=== PATIENT | female | born 1950 | race Caucasian/White ===

== ENCOUNTER → 2023-05-16 14:55 | Outpatient (REF) | payer MEDICARE, OTHER, SELFPAY | LOC: DHCBC HW 14:55 | PROVIDERS: ATTENDING PHYSICIAN Internal Medicine Cardiovascular Disease; FAMILY PHYSICIAN Family Medicine | DX: I35.0 Nonrheumatic aortic (valve) stenosis (principal) | CPT/HCPCS: 93306 ==

== ENCOUNTER → 2023-06-04 08:32 | Outpatient (REF) | payer MEDICARE, OTHER, SELFPAY | LOC: HWRAD 08:32 | PROVIDERS: ATTENDING PHYSICIAN Internal Medicine; FAMILY PHYSICIAN Family Medicine | DX: K75.81 Nonalcoholic steatohepatitis (NASH) (principal) | CPT/HCPCS: 76700 ==

== ENCOUNTER → 2023-06-26 07:49 | Outpatient (REF) | payer MEDICARE, OTHER, SELFPAY | LOC: RAD 07:49 | PROVIDERS: ATTENDING PHYSICIAN Internal Medicine; FAMILY PHYSICIAN Family Medicine | DX: N28.89 Other specified disorders of kidney and ureter (principal) | CPT/HCPCS: 74170; Q9967 ==

== ENCOUNTER → 2023-07-25 13:46 | Outpatient (REF) | payer MEDICARE, OTHER, SELFPAY | LOC: RCS 13:46 | PROVIDERS: ATTENDING PHYSICIAN Internal Medicine Cardiovascular Disease; FAMILY PHYSICIAN Family Medicine | DX: R93.1 Abnormal findings on diagnostic imaging of heart and coronary circulation (principal) | CPT/HCPCS: 93308; 93321; 93325; Q9950 ==

== ENCOUNTER → 2023-08-07 07:02 | Outpatient (REF) | payer MEDICARE, OTHER, SELFPAY | LOC: RAD 07:02 | PROVIDERS: ATTENDING PHYSICIAN Family Medicine | DX: R09.89 Other specified symptoms and signs involving the circulatory and respiratory systems (principal) | CPT/HCPCS: 93880 ==

== ENCOUNTER → 2023-12-31 07:37 | Outpatient (REF) | payer MEDICARE, OTHER, SELFPAY | LOC: RAD 07:37 | PROVIDERS: ATTENDING PHYSICIAN Family Medicine | DX: Z78.0 Asymptomatic menopausal state (principal) | CPT/HCPCS: 77080 ==

== ENCOUNTER → 2024-01-26 08:26 | Outpatient (REF) | payer MEDICARE, OTHER, SELFPAY | LOC: RCS 08:26 | PROVIDERS: ATTENDING PHYSICIAN Internal Medicine Cardiovascular Disease; FAMILY PHYSICIAN Family Medicine | DX: I10 Essential (primary) hypertension (principal); E66.01 Morbid (severe) obesity due to excess calories; Z95.2 Presence of prosthetic heart valve; I44.7 Left bundle-branch block, unspecified | CPT/HCPCS: 93307; Q9957 ==

== ENCOUNTER → 2024-06-14 15:56 | Outpatient (REF) | payer MEDICARE, OTHER, SELFPAY | LOC: RCS 15:56 | PROVIDERS: ATTENDING PHYSICIAN Nurse Practitioner Gerontology; FAMILY PHYSICIAN Student in an Organized Health Care Education/Training Program | DX: Z95.2 Presence of prosthetic heart valve (principal) | CPT/HCPCS: 93306 ==

== ENCOUNTER 2024-08-27 11:56 | Outpatient (RCR) | payer MEDICARE, OTHER, SELFPAY ==
[2024-08-17 14:28] LABS: Glucose - Point of Care 142 mg/dl (70-99)
[2024-08-17 15:13] LABS: Glucose - Point of Care 102 mg/dl (70-99)
[2024-08-18 15:53] LABS: Glucose - Point of Care 182 mg/dl (70-99)
[2024-08-18 16:49] LABS: Glucose - Point of Care 114 mg/dl (70-99)
[2024-08-25 15:53] LABS: Glucose - Point of Care 137 mg/dl (70-99)
[2024-08-25 16:56] LABS: Glucose - Point of Care 99 mg/dl (70-99)
[2024-08-27 11:11] LABS: Glucose - Point of Care 158 mg/dl (70-99)
[2024-08-27 12:06] LABS: Glucose - Point of Care 117 mg/dl (70-99)
== END 2024-08-27 23:59 | disposition home or self-care (01) ==
LOC: CRHB 11:56
PROVIDERS: ATTENDING PHYSICIAN Internal Medicine Cardiovascular Disease
DX: Z95.4 Presence of other heart-valve replacement (principal)
CPT/HCPCS: 82962; G0422; G0423

== ENCOUNTER 2024-09-27 16:48 | Outpatient (RCR) | payer MEDICARE, OTHER, SELFPAY ==
[2024-08-30 15:57] LABS: Glucose - Point of Care 167 mg/dl (70-99)
[2024-08-30 16:48] LABS: Glucose - Point of Care 117 mg/dl (70-99)
[2024-09-01 15:55] LABS: Glucose - Point of Care 98 mg/dl (70-99)
[2024-09-01 16:53] LABS: Glucose - Point of Care 117 mg/dl (70-99)
[2024-09-03 17:20] LABS: Glucose - Point of Care 106 mg/dl (70-99)
[2024-09-03 18:16] LABS: Glucose - Point of Care 95 mg/dl (70-99)
== END 2024-09-27 23:59 | disposition home or self-care (01) ==
LOC: CRHB 16:48
PROVIDERS: ATTENDING PHYSICIAN Internal Medicine Cardiovascular Disease
DX: Z95.4 Presence of other heart-valve replacement (principal)
CPT/HCPCS: 82962; G0422; G0423

== ENCOUNTER → 2024-10-06 09:47 | Outpatient (REF) | payer MEDICARE, OTHER, SELFPAY | LOC: HWRAD 09:47 | PROVIDERS: ATTENDING PHYSICIAN Internal Medicine; FAMILY PHYSICIAN Student in an Organized Health Care Education/Training Program | DX: K74.60 Unspecified cirrhosis of liver (principal) | CPT/HCPCS: 76700 ==

== ENCOUNTER 2024-10-27 16:05 | Outpatient (RCR) | payer MEDICARE, OTHER, SELFPAY | END 2024-10-27 23:59 | disposition home or self-care (01) | LOC: CRHB 16:05 | PROVIDERS: ATTENDING PHYSICIAN Internal Medicine Cardiovascular Disease | DX: Z95.4 Presence of other heart-valve replacement (principal) | CPT/HCPCS: G0422; G0423 ==

== ENCOUNTER 2024-11-24 16:17 | Outpatient (RCR) | payer MEDICARE, OTHER, SELFPAY | END 2024-11-25 09:55 | disposition home or self-care (01) | LOC: CRHB 16:17 | PROVIDERS: ATTENDING PHYSICIAN Internal Medicine Cardiovascular Disease | DX: Z95.4 Presence of other heart-valve replacement (principal) | CPT/HCPCS: G0422; G0423 ==

== ENCOUNTER → 2025-01-31 08:22 | Outpatient (REF) | payer MEDICARE, OTHER, SELFPAY | LOC: RCS 08:22 | PROVIDERS: ATTENDING PHYSICIAN Nurse Practitioner; FAMILY PHYSICIAN Student in an Organized Health Care Education/Training Program; OTHER PHYSICIAN Internal Medicine Cardiovascular Disease | DX: Z95.2 Presence of prosthetic heart valve (principal) | CPT/HCPCS: 93306 ==